=== PATIENT | male | born 1940 | race Caucasian/White ===

== ENCOUNTER → 2020-10-16 | Outpatient (CLI) | payer MEDICARE ==
[~2020-10-16] MED LIST: CORTIZONE-1057 GM TP; EUCERIN CALM I200 ML TP; FLOXIN 0.3% OTIC5 ML AS; IBUPROFEN400 MG PO; IPRAT-ALBUT 0.5-3 ML INH; LOPRESSOR 25 MG25 MG PO; NORCO 5-325 TA1 EACH PO; OMNICEF 300 MG300 MG PO; PREDNISONE20 MG PO; SPIRIVA18 MCG INH; SYMBICORT 16010.2 GM INH; TESSALON PERLE100 MG PO
== END ==
LOC: ECHO 09:42
DX: R06.00 Dyspnea, unspecified (principal); J44.9 Chronic obstructive pulmonary disease, unspecified; R91.8 Other nonspecific abnormal finding of lung field; R93.1 Abnormal findings on diagnostic imaging of heart and coronary circulation
CPT/HCPCS: ECHO; 71046; 93306

== ENCOUNTER 2021-04-30 13:39 | Emergency (ER) | payer MEDICARE ==
[2021-04-30 14:41] LABS: HEMOGLOBIN 15.3 gm/dl (14.0-17.5); RED BLOOD COUNT 4.92 M/UL (4.20-5.50); WHITE BLOOD COUNT 6.8 K/UL (4.5-11.0)
== END 2021-04-30 14:30 | disposition home or self-care (01) ==
LOC: ER1 13:39
PROVIDERS: Emergency Medicine
DX: U07.1 COVID-19 (principal); J44.9 Chronic obstructive pulmonary disease, unspecified; I10 Essential (primary) hypertension; I25.10 Atherosclerotic heart disease of native coronary artery without angina pectoris
CPT/HCPCS: 85025; 93005; 96374; 96375; 99285; U0002